=== PATIENT | female | born 1945 | race Caucasian/White ===

== ENCOUNTER 2018-02-01 14:18 | Inpatient (IN) | payer OTHER ==
[~2018-02-01] VITALS: Ht 154.9 cm; Wt 70.8 kg
[~2018-02-01 14:18] MED LIST: ACETAMINOPHEN-1 EAC1 PO; ADULT LOW DOSE81 MG PO; ALBUTEROL INHAL17 GM IH; ALLEGRA180 MG PO; ASPIR 8181 MG PO; ASPIRIN325 PO; AZITHROMYCIN 2250 MG PO; BENTYL 20 MG TA20 M1 PO; CALCIUM 600 +1 EAC8 PO; CELEBREX; CELEBREX 200 M200 M1 PO; CELEBREX 200 M200 MG PO; CHERATUSSIN AC118 ML PO; CIPROFLOXACIN500 M1 PO; CLARITIN10 MG PO; CRESTOR10 MG PO; DEMEROL100 MG PO; DOXYCYCLINE 10100 MG PO; DURAGESIC1 EAC1 TD; EFFEXOR XR150 MG PO; FISH OIL 1,0001 EAC8 PO; FLAGYL500 MG PO; GINKGO BILOBA120 M1 PO; GINKGO BILOBA120 MG PO; LIPITOR 20 MG T20 M1 PO; MULTIVITAMINS PO; MULTIVITAMINS1 EAC7 PO; NEXIUM; NEXIUM40 MG PO; NORCO 7.5-3251 EACH PO; PERCOCET 5-3251 EACH PO; PREDNISONE 20 M20 MG PO; SINGULAIR 10 MG10 M1 PO; SOMA250 MG PO; SYMBICORT160 MCG/4. INH; SYMBICORT80 MCG/4.1 INH; TESSALON200 MG PO; TOPROL XL25 MG PO; VICODIN ES TAB1 EACH PO; VISION VITAMIN1 EAC1 PO; VITAMIN D-32000 UNIT PO; XARELTO15 MG PO; XARELTO20 MG PO
[2018-02-01 14:24] VITALS: BP 158/75
[2018-02-01] MEDS ORDERED: ACCUNEB SO1.25 MG/1 INH (14:29)
[2018-02-01 14:41] LABS: ABSOLUTE BASOPHILS 0.1 thou/uL (0.0-0.2); ABSOLUTE EOSINOPHILS 0.4 thou/uL (0.0-0.7); ABSOLUTE LYMPHOCYTES 3.2 thou/uL (0.8-5.3); ABSOLUTE MONOCYTES 0.5 thou/uL (0.0-1.2); ABSOLUTE NEUTROPHILS 3.1 thou/uL (1.6-8.1); BASOPHILS 1.3 %; EOSINOPHILS 5.3 %; HEMOGLOBIN 13.9 gm/dL (12.0-15.0); MCH 29.7 pg (26.0-34.0); MCV 89.8 fL (80.0-100.0); MONOCYTES 7.5 %; MPV 8.9 fl. (7.2-11.1); NUCLEATED RBCS 0 /100WBC; PLATELET COUNT* 229 thou/uL (150-400); POLYS 41.9 %; RBC 4.68 mil/uL (4.20-5.00); RDW-CV 12.7 % (10.5-14.5); WBC 7.3 thou/uL (4.0-11.0)
[2018-02-01 14:45] LABS: APTT 25.4 Seconds (25.0-31.3); INR 1.1; PROTIME 10.7 Seconds (9.20-11.50)
[2018-02-01 14:51] LABS: ANION GAP 6 mmol/L (7-16); BUN 21 mg/dL (7-18); CALCIUM 9.1 mg/dL (8.5-10.1); CHLORIDE 108 mmol/L (98-107); CO2 29 mmol/L (21-32); CREATININE 0.9 mg/dL (0.6-1.3); GLUCOSE 115 mg/dL (70-99); POTASSIUM 3.7 mmol/L (3.5-5.1); SODIUM 143 mmol/L (136-145)
[2018-02-01 15:13] LABS: ALKALINE PHOSPHATASE 84 U/L (46-116); CK-MB MASS 2.8 ng/mL (<0.5-3.6); NT-PRO BRAIN NAT PEPTIDE 194 pg/mL (<300); SGOT 23 U/L (15-37); SGPT 31 U/L (30-65); TOTAL BILIRUBIN 0.5 mg/dL (<0.1-1.0); TROPONIN-I LEVEL <0.06 ng/mL (<0.06)
[2018-02-01 16:08] LABS: URINE BILIRUBIN NEGATIVE (Negative); URINE BLOOD NEGATIVE (Negative); URINE CLARITY CLEAR; URINE COLOR YELLOW; URINE GLUCOSE-RANDOM NEGATIVE (Negative); URINE KETONES NEGATIVE (Negative); URINE LEUKOCYTES-REFLEX NEGATIVE (Negative); URINE NITRITE-REFLEX NEGATIVE (Negative); URINE PROTEIN NEGATIVE (Negative); URINE SPECIFIC GRAVITY 1.015 (1.005-1.030); URINE UROBILINOGEN 0.2 E.U./dl (0.2-1.0)
[2018-02-01 16:27] VITALS: BP 136/104
[2018-02-01 17:08] VITALS: BP 149/77
[2018-02-01] MEDS ORDERED: CELEBREX 200 M200 M1 PO (17:31)
--- NOTE | 2018-02-01 17:59 | NUR ---
ASSUMED CARE OF PATIENT AT 1634 AFTER TRANSFER TO ROOM 204 FROM EMERGENCY DEPARTMENT. PATIENT AWAKE, ALERT, AND ORIENTED APPROPRIATELY. ADMISSION ASSESSMENT AND DOCUMENTATION COMPLETED AND CHARTED. VITAL SIGNS STABLE. OXYGEN SATURATION WITHIN NORMAL LIMITS ON ROOM AIR. FALL CONTRACT SIGNED AND ON CHART. FALL RISK BRACELET AND ALLERGY BAND ON. DISCUSSED WITH PATIENT THE IMPORTANCE TO CALL FOR HELP WITH WANTING TO TRANSFER OR AMBULATE DUE TO COMPLAINTS OF WEAKNESS. NIH SCORE 1, SEE DOCUMENTATION. DENIES NEEDS AT THIS TIME. CALL LIGHT WITHIN REACH, USES APPROPRIATELY. NURSING WILL CONTINUE TO MONITOR.
[2018-02-01 20:00] VITALS: BP 138/66
[2018-02-02] VITALS: BP 147/67
--- NOTE | 2018-02-02 03:57 | NUR ---
ASSUMED PT CARE AT 19:15 REPORT RECEIVED FORM NURSE. OT IS ALERT AWAKE ORIENTED X4. DOES NOT COMPLAIN OF PAIN AT THIS TIME. SINUS RYTHM ON THE MONITOR . NIH SCORE OF 1. MEDICATIONS WERE ADMINSTERED SCHEDULED. PT SLEPT DURING THE NIGHT AND HAD SOME BATHROOM INTERUPTIONS IN THE MIDDLE OF THE NIGHT.
[2018-02-02 04:00] VITALS: BP 121/61
[2018-02-02 05:58] LABS: CHOLESTEROL 102 mg/dL (<200); HDL CHOLESTEROL 31 mg/dL (>40); LDL CHOLESTEROL 44 mg/dL (<100); TC:HDL 3.3 Ratio (Not establshd); TRIGLYCERIDE 136 mg/dL (<150); VLDL 27 mg/dL (<40)
[2018-02-02 06:04] LABS: SERUM ASSESSMENT Clear
[2018-02-02 08:00] VITALS: BP 135/71
--- NOTE | 2018-02-02 08:00 | NUR ---
AM ASSESSMENT COMPLETE, DEFER TO COMPUTER CHARTING. BRUSHER OPERATOR TRACKING SR. ALERT ORIENTED, REPORTING FEELING BETTER - DENIES CHEST PAIN, SOA OR ANY DISCOMFORT AT THIS TIME. CALL LIGHT WITHIN REACH.
--- NOTE | 2018-02-02 10:52 | NUR ---
OT ATTEMPTED EVAL. PT REFUSED STATING, ALL SYMPTOMS HAVE RESOLVED AND SHE HAS NO CONCERNS ABOUT BEING ABLE TO RETURN HOME. DC OT
[2018-02-02 12:00] VITALS: BP 148/85
[2018-02-02 15:41] VITALS: BP 153/62
--- NOTE | 2018-02-02 16:49 | NUR ---
CHRONOMETER TESTER TRACKING WITH NO CHANGE IN RHYTHM. NEURO CHECKS/NIH REMAIN UNCHANGED NIH 1. AT BEDSIDE. NO COMPLAINTS OF DIZZINESS, NUMBNESS OR TINGLING. GIVEN TYLENOL EARLIER IN SHIFT FOR COMPLAINTS OF HEADACHE/SINUS DISCOMFORT, LATER REPORTING PARTIAL RELIEF WHEN REASSESSING PAIN CONTROL. TOLERATING DIET, NO DIFFICULTY WITH SWALLOWING. CALL LIGHT WITHIN REACH, WILL CONTINUE WITH PLAN OF CARE.
[2018-02-02 19:23] VITALS: BP 154/75
[2018-02-03] VITALS: BP 153/75
[2018-02-03 02:05] LABS: GLYCOHEMOGLOBIN (HGB A1C) 5.6 % (4.8-5.6)
[2018-02-03 04:00] VITALS: BP 157/76
[2018-02-03 08:00] VITALS: BP 124/73
[2018-02-03] MEDS ORDERED: ASPIR 8181 MG PO (09:52)
--- NOTE | 2018-02-03 10:21 | EKG ---
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: [facility] : 1945 Requested By: Ravi Pizano Order Number: [id number] MD: Ehsan Das Measurements Intervals [place] Rate: 79 P: 77 RI: 112 QRS: -22 QRSD: 98 T: 5 QT: 404 QTc: 464 Interpretive Statements Sinus rhythm Borderline short RI interval Probable left atrial enlargement Borderline left axis deviation RSR' in V1 or V2, probably normal variant Baseline wander in lead(s) V3 Compared to ECG 09/09/2016 17:04:45 RSR' in V1 or V2 now present T-wave abnormality no longer present Electronically Signed On 02-03-2018 10:21:44 CDT by Ehsan Das [email or web address] <ELECTRONICALLY SIGNED> By: Ehsan Das MD, [facility] 02/03/18 1021 1424 1424 Ehsan Das MD, [facility] /EPI
--- NOTE | 2018-02-03 10:37 | NUR ---
ASSUMED CARE OF PT AT 0730. PT RESTING IN BED WAITING FOR BREAKFAST. PT A&0X4, DENIES ANY PAIN OR SHORTNESS OF BREATH AT THIS TIME. PT TO HAVE A MRI TODAY, PT REQUESTING SOMETHING FOR ANXIETY BEFORE SCAN. PRN XANAX ORDERED AND GIVEN PER SEP. QUESTIONAIRE FILLED OUT. [facility] COMPLETED- PT SCORING 1 DUE TO MINOR DROOPING. PT TRACING SR ON THE NUT AND BOLT ASSEMBLER. ON RA SAT UPPER 90'S. PT UP AD CHRISSY. IVF. PT TO HAVE ECHO AND MRI TODAY. AM ASSESSMENT CHARTED. MEDICATIONS PER SEP. PT REPOSITIONS SELF. HOURLY ROUNDING OBSERVED. BED IN LOW POSITION. CALL LIGHT WITHIN REACH. WILL CONTINUE PLAN OF CARE.
--- NOTE | 2018-02-03 11:43 | NUR ---
Pt is A&O. Resides at home with her , son and son's friend. Independent with ADLs, continues to cook, clean and drive. Pt has a cane that she can use if necessary. Pt has a neb, no home o2. No hx of HH or SNF. Pt interested in HH at dc, for a nurse and aide. Goal is to return home at dc. Following.
[2018-02-03 12:15] VITALS: BP 150/70
--- NOTE | 2018-02-03 13:09 | 2DMMODE ---
[place] [address] 2 D/M-MODE ECHOCARDIOGRAM Name: CHRISTINA LARA Room: [address] IN [facility]#: [id number] Admission: 02/01/18 Attend Phys: Chapin Soto, Discharge: Date of : 47 Date of Service: 02/03/18 1308 Report #: [id number] THIS REPORT FOR: //name// APPROVED REPORT Study performed: 02/03/2018 10:31:50 EXAM: Comprehensive 2D, Doppler, and color-flow Echocardiogram Patient Location: In-Patient Room #: [facility] Status: routine BSA: 1.75 HR: 68 bpm BP: 124/73 mmHg Rhythm: NSR Other Information Study Quality: Good Indications CVA/TIA Echo Enhancing Agent Indication: Rule out Shunt Agent(s) / Amount(s) Used: Agitated Saline 10 cc 2D Dimensions LVEF(%): 70.32 (>50%) IVSd: 15.06 (7-11mm) LVOT Diam: 18.97 (18-24mm) LVDd: 38.83 mm PWd: 12.43 (7-11mm) Ascending Ao: 35.21 (22-36mm) LVDs: 23.61 (25-40mm) Aortic Root: 31.98 mm Giles's LVEF: 70.32 % Volumes Left Atrial Volume (Systole) LA ESV Index: 40.80 mL/m2 Aortic Valve AoV Peak César.: 1.85 m/s AO Peak Gr.: 13.68 mmHg LVOT Max P.04 mmHg AO Mean Gr.: 6.50 mmHg LVOT Mean P.13 mmHg LVOT Max V: 1.42 m/s AO V2 VTI: 33.49 cm LVOT Mean V: 0.79 m/[place] [address] 2 D/M-MODE ECHOCARDIOGRAM Name: CHRISTINA LARA Room: [address] IN [facility].#: [id number] Admission: 02/01/18 Attend Phys: Chapin Soto, Discharge: Date of : 47 Date of Service: 02/03/18 1308 Report #: [id number] GISELLE (VTI): 2.40 cm2 LVOT V1 VTI: 28.42 cm AI Alfalfa: 1.65 m/s2 AI PHT: 714.82 ms Mitral Valve E/A Ratio: 1.30 MV Decel. Time: 244.49 ms MV E Max César.: 0.99 m/s MV PHT: 70.90 ms MVA (PHT): 3.10 cm2 TDI E/Lateral E': 8.25 E/Medial E': 11.00 Medial E' César.: 0.09 m/s Lateral E' César.: 0.12 m/s Pulmonary Valve PV Peak César.: 1.12 m/s PV Peak Gr.: 5.06 mmHg Tricuspid Valve RAP Estimate: 5.00 mmHg TR Peak Gr.: 28.15 mmHg RVSP: 33.15 mmHg PA Pressure: 33.15 mmHg Left Ventricle The left ventricle is normal size. There is normal LV segmental wall motion. Moderate concentric left ventricular hypertrophy. Left ventricular systolic function is normal. The left ventricular ejection fraction is within the normal range. LVEF is 60-65%. Grade II - pseudonormal filling dynamics. Right Ventricle The right ventricle is normal size. The right ventricular systolic function is normal. Atria Left atrium is mildly dilated. Interatrial septum is intact without evidence of ASD . Bubble study was technically limited, no apparent PFO. The right atrium size is normal. Aortic Valve The aortic valve is normal in structure. Mild aortic regurgitation. There is no aortic valvular stenosis. Mitral Valve The mitral valve is normal in structure. Mild [place] [address] 2 D/M-MODE ECHOCARDIOGRAM Name: CHRISTINA LARA Room: [address] IN .R.#: [id number] Admission: 02/01/18 Attend Phys: Chapin Soto, Discharge: Date of : 47 Date of Service: 02/03/18 1308 Report #: [id number] No evidence of mitral valve stenosis. Tricuspid Valve The tricuspid valve is normal in structure. Mild tricuspid regurgitation. Mild pulmonary hypertension. Pulmonic Valve The pulmonary valve is normal in structure. Mild pulmonic regurgitation. Great Vessels The aortic root is normal in size. IVC is normal in size and collapses with >50% inspiration Pericardium There is no pericardial effusion. <Conclusion> Moderate concentric left ventricular hypertrophy. There is normal LV segmental wall motion. LVEF is 60-65%. Grade II - pseudonormal filling dynamics. Left atrium is mildly dilated. There is no aortic valvular stenosis. Mild aortic regurgitation. Mild tricuspid regurgitation. Mild pulmonary hypertension. Interatrial septum is intact without evidence of ASD . Bubble study was technically limited, no apparent PFO. <ELECTRONICALLY SIGNED> By: Ehsan Das MD, FACC 02/03/18 1308 1308 1308 Ehsan Das MD, FACC /INF
[2018-02-03 14:53] VITALS: BP 150/70
[2018-02-03 16:06] VITALS: BP 126/72
--- NOTE | 2018-02-03 18:47 | NUR ---
NO ACUTE CHANGES THROUGHOUT SHIFT. REFER TO CHARTING. PT HAD MRI AND MRA TODAY. REFER TO RESULTS. SPOKE WITH DR WAY AND SUNNI FOR DISCHARGE PENDING RESULTS OF MRA. AWAITING RESULTS AT THIS TIME. PT GIVEN PO XANAX PRIOR TO MRI AND MRA PER PT REQUEST FOR ANXIETY/CLAUSTROPHOBIA. PT CONTINUES TO TRACE SR ON THE MONITORING SPECIALIST. ON RA SAT UPPER 90'S. DENIES ANY PAIN. PT SCORING 1 ON NIH FOR SLIGHT DROOPING. PT UP AD CHRISSY. FAMILY AT BEDSIDE AT THIS TIME. WILL AWAIT MRA RESULTS AND FOLLOW THROUGH NEEDED. CALL LIGHT WITHIN REACH. WILL CONTINUE PLAN OF CARE.
--- NOTE | 2018-02-03 19:34 | NUR ---
MRA RESULTS BACK AND CALLED TO DR WAY. SERINA FOR PT TO GO HOME. DISCHARGE ORDERS RECEIVED. DISCHARGE INSTRUCTIONS, CARE NOTES, SCRIPTS AND FOLLOW UP APPTS GIVEN TO PT. PT COMMUNICATES UNDERSTANDING OF DISCHARGE TEACHING. IV AND CHOCOLATE REFINING ROLLER REMOVED. REPORT GIVEN TO GERMAINE FELDER. PT WAITING FOR RIDE AT THIS TIME.
--- NOTE | 2018-02-03 20:28 | NUR ---
PT LEFT THE FLOOR AT 1945. BELONGINGS TAKEN WITH PT. HEART MONITOR REMOVED. IV TAKEN OUT.
--- NOTE | 2018-02-07 09:40 | EEG ---
[address] [address] EEG STUDY REPORT Name: CHRISTINA LARA Room: [address] M.R.#: [id number] Admission: 02/01/18 Attend Phys: Chapin Soto MD Discharge: 02/03/18 Date of : 47 Report #: [id number] THIS REPORT FOR: //name// CC: Dayne Soto DATE OF SERVICE: 02/02/2018 This patient is being evaluated for memory loss. EEG was done by placing the electrodes by standard 10-20 system of electrode placement. Both referential and sequential montages were used for recording. Background activity in this patient's EEG is about 10 Hz and 30 microvolts. It is a symmetrical activity. The patient became drowsy and that is associated with bilateral slowing and vertex sharp waves. Photic stimulation is unremarkable. Throughout the record, no active epileptiform activity was noticed. IMPRESSION: This patient's EEG is within normal limit. Thank you very much for this referral. <ELECTRONICALLY SIGNED> By: Ramin Rosa MD 02/07/18 0940 1443 [id number] Rosa MD /nt
--- NOTE | 2018-02-07 09:40 | CON ---
[address] [address] CONSULTATION Name: JANECHRISTINA F Room: [address] IN M.R.#: [id number] Admission: 02/01/18 Attend Phys: Chapin Soto MD Discharge: 02/03/18 Date of : 47 Report #: [id number] THIS REPORT FOR: //name// CC: Dayne Soto DATE OF SERVICE: 02/02/2018 HISTORY OF PRESENT ILLNESS: This is a 72-year-old female patient who was seen by me yesterday in the Emergency Room and today on the floor. This is a combined note. This patient was admitted with loss of memory. She also had some weakness in the legs. There was some question of speech difficulty, but that was never confirmed. I went back and reviewed the records in the computer and I have seen this patient in 2014 with similar symptoms. It was not clear whether she had any panic attack that time. She does not think that she is any different, but cannot tell me if she had more spells. According to the record, her memory has deteriorated. REVIEW OF SYSTEMS: Positive for cellulitis, Patel cyst, deep vein thrombosis, groin sprain, knee injury, osteoarthritis spells like this before. She does have a back surgery, migraine. She said she had an aneurysm that she went to [facility], but they never found an aneurysm. She denies any other eye, ENT, cardiac, respiratory, GI, , constitutional, dermatological, hematological, throat, allergic symptom associated with present symptomatology. She does have some musculoskeletal and psychiatric issues, but they are ongoing. PAST MEDICAL HISTORY: Positive for similar spell for which I saw her in 2013. FAMILY HISTORY: Mostly noncontributory. SOCIAL HISTORY: She denies the use of alcohol or smoking. PHYSICAL EXAMINATION: Indicates she is alert. She is responsive. She can follow simple commands. She knows what month it is, but knows that only after she is asked a couple of times. She knows what hospital she is in. Her speech looks intact. Cranial nerve examination 2-12 is unremarkable. Strength, sensation, reflexes and tone is symmetrical. There is no meningeal sign. There is no carotid bruit. Her fundus could not be visualized. Pulses are palpable. She has no edema, cyanosis or jaundice. She is moderately built individual who does not have any dysmorphic features of eyes, ears and face. Her vision and hearing looks adequate. She has no thyroid mass. Cardiac examination is mostly unremarkable. No respiratory difficulty or rhonchi was noticed. Her blood pressure is 148/85, respirations 18, pulse is 72, temperature is 98.5. LABORATORY DATA: Her white count is 7.3. She did have a CT scan of the head and a carotid Doppler, [place] [address] CONSULTATION Name: CHRISTINA LARA Room: [address]#: [id number] Admission: 02/01/18 Attend Phys: Chapin Soto MD Discharge: 02/03/18 Date of : 47 Report #: [id number] IMPRESSION: This patient may have transient global amnesia or a panic attack. She had these spells before. No cause has been found. It may be related to her psychiatric issue, but neurological workup seems reasonable. RECOMMENDATIONS: 1. We will check an EEG. 2. We will check a carotid Doppler. 3. We will watch her and see if more spells occur. 4. We will follow up with you. Thank you very much for this referral. <ELECTRONICALLY SIGNED> By: Ramin Rosa MD 02/07/18 0940 1357 1909Ramin Rosa MD /nt
== END 2018-02-03 19:45 | disposition home or self-care (01) | DRG 884 ==
LOC: M.ERS 14:18 → M.2W 15:42 → M.TBA-ER 15:42 → M.2W 16:44
PROVIDERS: Family Medicine; ADMIT Internal Medicine
DX: F03.90 Unspecified dementia, unspecified severity, without behavioral disturbance, psychotic disturbance, mood disturbance, and anxiety (principal); G45.9 Transient cerebral ischemic attack, unspecified; G43.909 Migraine, unspecified, not intractable, without status migrainosus; I10 Essential (primary) hypertension; E78.5 Hyperlipidemia, unspecified; E66.9 Obesity, unspecified; Z96.651 Presence of right artificial knee joint; Z90.710 Acquired absence of both cervix and uterus; Z86.718 Personal history of other venous thrombosis and embolism; Z88.0 Allergy status to penicillin; Z88.2 Allergy status to sulfonamides; Z88.8 Allergy status to other drugs, medicaments and biological substances; Z82.49 Family history of ischemic heart disease and other diseases of the circulatory system; Z68.29 Body mass index [BMI] 29.0-29.9, adult; Z79.82 Long term (current) use of aspirin; Z79.899 Other long term (current) drug therapy

== ENCOUNTER → 2020-09-19 | Emergency (ER) | payer OTHER ==
[~2020-09-19] VITALS: Ht 154.9 cm; Wt 75.8 kg
[~2020-09-19] MED LIST changes: +ACCUNEB SO1.25 MG/1 INH; +PREDNISONE 20 M20 M1 PO
[2020-09-19 18:00] VITALS: BP 147/88
== END ==
LOC: M.ERS 17:26
DX: G56.02 Carpal tunnel syndrome, left upper limb (principal); G43.909 Migraine, unspecified, not intractable, without status migrainosus; Z90.710 Acquired absence of both cervix and uterus; Z96.651 Presence of right artificial knee joint; Z98.890 Other specified postprocedural states; Z86.718 Personal history of other venous thrombosis and embolism; Z79.899 Other long term (current) drug therapy; Z88.1 Allergy status to other antibiotic agents; Z88.0 Allergy status to penicillin; Z88.2 Allergy status to sulfonamides

== ENCOUNTER 2021-03-03 20:28 | Emergency (ER) | payer OTHER ==
[~2021-03-03] VITALS: Ht 154.9 cm; Wt 72.6 kg
[2021-03-03 23:33] LABS: URINE BILIRUBIN NEGATIVE (Negative); URINE BLOOD NEGATIVE (Negative); URINE CLARITY CLEAR; URINE COLOR YELLOW; URINE GLUCOSE-RANDOM NEGATIVE (Negative); URINE KETONES TRACE (Negative); URINE LEUKOCYTES-REFLEX TRACE (Negative); URINE NITRITE-REFLEX NEGATIVE (Negative); URINE PROTEIN NEGATIVE (Negative); URINE SPECIFIC GRAVITY >= 1.030 (1.005-1.030); URINE UROBILINOGEN 0.2 E.U./dl (0.2-1.0)
[2021-03-04 00:32] LABS: CASTS None Seen /LPF (None Seen); MUCUS >6 Heavy strn/LPF (None Seen); SQUAMOUS 0-3 Few /LPF (0-3)
[2021-03-04 00:33] LABS: CRYSTALS None Seen /LPF (None Seen); URINE RBC 0-2 Rare /HPF (0-2); URINE WBC-REFLEX >25 Many /HPF (0-5)
[2021-03-04] MEDS ORDERED: MACROBID 100 M100 M1 PO (01:12)
[2021-03-04] MEDS ORDERED: PERCOCET 5-3251 EACH PO (01:12)
[2021-03-04] MEDS ORDERED: TORADOL 10 MG T10 MG PO (01:14)
[2021-03-04 01:50] VITALS: BP 118/65
== END 2021-03-04 01:50 | disposition home or self-care (01) ==
LOC: M.ERS 20:28
PROVIDERS: Personal Emergency Response Attendant
DX: M48.07 Spinal stenosis, lumbosacral region (principal)